=== PATIENT | female | born 1975 | race Two or more races ===

== ENCOUNTER 2017-10-13 10:57 | Outpatient (CLI) | payer OTHER ==
[~2017-10-13 10:57] MED LIST: ALDOMET500 MG; CLONAZEPAM0.5 MG; KEPPRA750 MG; LOTREL 10-20 MG1 CAP; PRENATAL1 TAB; RESTORIL30 MG; TOPAMAX200 MG
== END 2017-10-13 11:02 | disposition home or self-care (01) ==
LOC: SONOGRAMA 10:57
DX: M05.79 Rheumatoid arthritis with rheumatoid factor of multiple sites without organ or systems involvement (principal)

== ENCOUNTER → 2019-03-15 | Outpatient (CLI) | payer OTHER | END | disposition home or self-care (01) | LOC: MAMO-SONO 09:45 → SONOGRAMA 10:24 | DX: N93.8 Other specified abnormal uterine and vaginal bleeding (principal) ==

== ENCOUNTER → 2019-08-02 | Outpatient (CLI) | payer OTHER | END | disposition home or self-care (01) | LOC: NUCLEAR 10:00 | DX: I87.2 Venous insufficiency (chronic) (peripheral) (principal) ==

== ENCOUNTER 2023-01-20 09:27 | Outpatient (CLI) | payer OTHER | END 2023-01-20 09:44 | disposition home or self-care (01) | LOC: MAMO-SONO 09:27 | PROVIDERS: ATTEND Internal Medicine | DX: Z12.31 Encounter for screening mammogram for malignant neoplasm of breast (principal); R10.84 Generalized abdominal pain; I11.9 Hypertensive heart disease without heart failure; E87.6 Hypokalemia; N39.8 Other specified disorders of urinary system; N63.0 Unspecified lump in unspecified breast ==

== ENCOUNTER 2023-11-02 13:14 | Outpatient (CLI) | payer OTHER | END 2023-11-02 13:20 | disposition home or self-care (01) | LOC: RAD 13:14 | DX: M50.30 Other cervical disc degeneration, unspecified cervical region (principal) ==

== ENCOUNTER 2023-11-05 09:38 | Outpatient (CLI) | payer OTHER | END 2023-11-05 09:41 | disposition home or self-care (01) | LOC: TOM 09:38 | PROVIDERS: ATTEND Internal Medicine | DX: E87.5 Hyperkalemia (principal); E27.9 Disorder of adrenal gland, unspecified; R10.10 Upper abdominal pain, unspecified ==

== ENCOUNTER 2024-10-16 09:37 | Outpatient (CLI) | payer OTHER | END 2024-10-16 09:42 | disposition home or self-care (01) | LOC: MAMO-SONO 09:37 | PROVIDERS: ATTEND Internal Medicine | DX: N64.9 Disorder of breast, unspecified (principal); Z12.31 Encounter for screening mammogram for malignant neoplasm of breast ==

== ENCOUNTER 2024-12-29 09:42 | Outpatient (CLI) | payer OTHER | END 2024-12-29 09:49 | disposition home or self-care (01) | LOC: TOM 09:42 | PROVIDERS: ATTEND Internal Medicine | DX: R31.9 Hematuria, unspecified (principal) ==

== ENCOUNTER 2025-01-11 11:25 | Outpatient (CLI) | payer OTHER | END 2025-01-11 11:26 | disposition home or self-care (01) | LOC: NUCLEAR 11:25 | PROVIDERS: ATTEND Internal Medicine | DX: R60.0 Localized edema (principal) ==

== ENCOUNTER 2025-01-11 12:31 | Outpatient (CLI) | payer OTHER | END 2025-01-11 12:48 | disposition home or self-care (01) | LOC: RAD 12:31 | PROVIDERS: ATTEND Internal Medicine | DX: M54.2 Cervicalgia (principal); M25.561 Pain in right knee; M25.562 Pain in left knee; M25.521 Pain in right elbow; M25.522 Pain in left elbow; M79.641 Pain in right hand; M79.642 Pain in left hand; M25.571 Pain in right ankle and joints of right foot; M25.572 Pain in left ankle and joints of left foot; M79.671 Pain in right foot; M79.672 Pain in left foot ==

== ENCOUNTER 2025-01-16 11:05 | Inpatient (IN) | payer OTHER ==
[~2025-01-16] VITALS: Ht 157.5 cm; Wt 45.4 kg
[2025-01-16] MEDS ORDERED: BENAZEPRIL HCL20 MG PO (11:44)
[2025-01-16] MEDS ORDERED: POTASSIUM CITR15 MEQ PO (11:44)
[2025-01-16] MEDS ORDERED: CARDURA8 MG PO (11:45)
[2025-01-16] MEDS ORDERED: METOPROLOL SUCC50 MG PO (11:45)
[2025-01-16] MEDS ORDERED: COLCHICINE0.6 MG PO (11:46)
[2025-01-16] MEDS ORDERED: FAMOTIDINE20 MG PO (11:46)
--- NOTE | 2025-01-16 12:00 | NUR ---
SE RECIBE FEMINA ALERTA Y ORIENTADA X3 CUAL REFEIRE PRESENTA EDEMA BILATERAL EN EXTREMIDADES INFERIORES CON [address]ION. DR.PEDRO LANGFORD REFIERE A PTE A ALTHEA DE EMERGENCIAS PARA EVALUACION. SE DEBRA S/V Y SE UBICA.
--- NOTE | 2025-01-16 13:00 | NUR ---
SE ORIENTA A PACIENTE SOBRE TRATAMIENTO MEDICO, REFIERE ENTENDER. SE COLECTAN MUESTRAS DE LABORATORIO Y SE CANALIZA A PACIENTE BAJO MEDIDAS ASEPTICAS.
[2025-01-16 13:32] LABS: MEAN CELL VOLUME 76.3 fL (80.00-100.00); MEAN CORPUSCULAR HGB CONC 32.8 g/dl (32.0-36.0); PLATELET COUNT 603 K/uL (150-450); RED BLOOD COUNT 3.06 M/uL (4.00-6.00); RED CELL DISTRIBUTION WIDTH 15.5 % (11.5-14.5)
[2025-01-16 13:40] LABS: HEMATOCRIT 23.4 % (36.0-45.00); HEMOGLOBIN 7.7 g/dL (12.0-15.00); MEAN CORPUSCULAR HEMOGLOBIN 25.1 pg (27.00-32.0)
[2025-01-16 13:52] LABS: ERYTHROCYTE SEDIMENTATION RATE > 130 mm/hr
[2025-01-16 14:04] LABS: ALBUMIN 2.2 gm/dL (3.4-5.0); BILIRUBIN TOTAL 0.24 mg/dL (0.3-1.2); BILIRUBIN,CONJUGATED 0.1 mg/dL (0.0-0.2); BILIRUBIN,UNCONJUGATED 0.14 mg/dL (0.0-0.6); CALCIUM 8.7 mg/dL (8.5-10.1); CREATININE SERUM 0.78 mg/dL (0.55-1.02); GFR 77.86; GLOBULINA 6.4 G/DL (2.4-3.5); POTASSIUM 3.21 mEq/L (3.5-5.1); TOTAL PROTEIN 8.6 gm/dL (6.4-8.2); URIC ACID 4.7 mg/dL (2.5-7.5)
[2025-01-16 14:21] LABS: C-REACTIVE PROTEIN 13.2 MG/DL (0.00-0.29)
[2025-01-16 14:23] LABS: PH,URINE 7.5 (5.0-8.0); URINE APPEARANCE Clear; URINE BILIRRUBIN Negative (NEGATIVE); URINE BLOOD Negative; URINE COLOR Yellow; URINE GLUCOSE Negative (NEGATIVE); URINE KETONE Negative (NEGATIVE); URINE LEUKOCYTE Negative; URINE NITRATE Negative; URINE PROTEIN Negative (NEGATIVE); URINE UROBILINOGEN 0.2 E.U./dl
[2025-01-16 14:27] LABS: URINE BACTERIA 206.6 uL (0.0-1933); URINE EPITHELIAL CELLS 17.2 uL (0.0-38.8); URINE WBC 5.5 uL (0.0-23.2)
[2025-01-16 14:51] LABS: COVID-19 AG NEGATIVE (NEGATIVE)
[2025-01-16 14:52] LABS: INFLUENZA A AG NEGATIVE (NEGATIVE)
[2025-01-16 14:57] LABS: URINE CAST 0.14 uL (0.0-1.40); URINE RBC 0.7 uL (0.0-20.8)
[2025-01-16] MEDS ORDERED: ORPHENADRINE CITRATE 30 MG/ML AMPUL ONE (15:06)
[2025-01-16] MEDS ORDERED: ORPHENADRINE CITRATE 30 MG/ML AMPUL IM ONE (15:15)
[2025-01-16 16:39] VITALS: BP 165/92
[2025-01-16] MEDS ORDERED: FUROsemide 20 MG/2 ML VIAL IV SCH (18:01)
[2025-01-16] MEDS ORDERED: ACETAMINOPHEN 325 MG TABLET PO PRN (18:15)
[2025-01-17 02:52] VITALS: BP 138/80; O2SAT 94
[2025-01-17 08:58] VITALS: BP 164/92; O2SAT 98
[2025-01-17] MEDS ORDERED: FAMOTIDINE/PF 20 MG/2 ML VIAL IV SCH (09:00)
[2025-01-17] MEDS ORDERED: CLONAZEPAM 1 MG TABLET PO SCH (09:00)
[2025-01-17] MEDS ORDERED: LISINOPRIL 20 MG TABLET PO SCH (09:00)
[2025-01-17] MEDS ORDERED: POTASSIUM CHLORIDE 10 MEQ CAPSULE PO SCH (09:00)
[2025-01-17 10:01] LABS: TSH 1.67 uIU/mL (0.358-3.74)
[2025-01-17] MEDS ORDERED: SPIRONOLACTONE 25 MG TABLET PO SCH (17:00)
[2025-01-17] MEDS ORDERED: METOPROLOL SUCCINATE 50 MG TAB.SR.24H PO SCH (17:00)
[2025-01-17] MEDS ORDERED: DOXAZOSIN MESYLATE 2 MG TABLET PO SCH (17:00)
[2025-01-17 18:41] VITALS: BP 181/100
[2025-01-18 02:26] VITALS: BP 161/90; O2SAT 93
[2025-01-18 06:23] LABS: HEMATOCRIT 30.3 % (36.0-45.00); HEMOGLOBIN 10.1 g/dL (12.0-15.00); MEAN CELL VOLUME 76.4 fL (80.00-100.00); MEAN CORPUSCULAR HEMOGLOBIN 25.6 pg (27.00-32.0); MEAN CORPUSCULAR HGB CONC 33.5 g/dl (32.0-36.0); PLATELET COUNT 587 K/uL (150-450); RED BLOOD COUNT 3.97 M/uL (4.00-6.00); RED CELL DISTRIBUTION WIDTH 16.5 % (11.5-14.5)
[2025-01-18 06:53] LABS: ALBUMIN 2.1 gm/dL (3.4-5.0); CALCIUM 9.1 mg/dL (8.5-10.1); CREATININE SERUM 0.72 mg/dL (0.55-1.02); GFR 85.4; PHOSPHOROUS 4.1 mg/dL (2.5-4.9)
[2025-01-18 07:13] VITALS: BP 171/96; O2SAT 95
[2025-01-18 08:07] LABS: POTASSIUM 2.96 mEq/L (3.5-5.1)
[2025-01-18] MEDS ORDERED: POTASSIUM CHLORIDE 20MEQ/100ML H2O PB IV NR (08:45)
[2025-01-18 10:52] LABS: ob NEGATIVE (NEGATIVE)
[2025-01-18 11:11] LABS: kappa lambda r 1.95 (0.26-1.65); kappa light 122.6 mg/L (3.3-19.4); lambda light 62.9 mg/L (5.7-26.3)
[2025-01-18] MEDS ORDERED: MAGNESIUM CHLORIDE 70 MG TABLET.DR PO SCH (12:28)
[2025-01-18] MEDS ORDERED: AMINO ACIDS 1 EACH TABLET PO SCH (13:00)
[2025-01-18] MEDS ORDERED: ENALAPRILAT DIHYDRATE 1.25 MG/ML VIAL IV PRN (16:15)
[2025-01-18 16:47] VITALS: BP 165/106; O2SAT 99
[2025-01-18] MEDS ORDERED: AMLODIPINE BESYLATE 2.5 MG TABLET PO SCH (17:00)
[2025-01-19 01:48] VITALS: BP 139/89; O2SAT 98
[2025-01-19 07:20] VITALS: BP 147/88; O2SAT 97
[2025-01-19] MEDS ORDERED: ORPHENADRINE CITRATE 30 MG/ML AMPUL IM NR (11:00)
[2025-01-19 13:06] LABS: a:g ratio 0.4 (0.7-1.7); alpha 1 g 0.5 g/dL (0.0-0.4); alpha 2 1.1 g/dL (0.4-1.0); beta g 1.4 g/dL (0.7-1.3); prot total 8.6 g/dL (6.0-8.5)
[2025-01-19 15:12] LABS: CALCIUM 9.1 mg/dL (8.5-10.1); CREATININE SERUM 0.85 mg/dL (0.55-1.02); GFR 70.51; POTASSIUM 3.8 mEq/L (3.5-5.1)
[2025-01-19 18:18] VITALS: BP 145/88
[2025-01-20 02:56] VITALS: BP 136/89; O2SAT 98
[2025-01-20 17:07] LABS: BETA-2-MICROGLOBULINA 2.4 mg/L (0.6-2.4)
[2025-01-20 18:42] VITALS: BP 156/89
[2025-01-20] MEDS ORDERED: METHYLPREDNISOLONE SOD SUCC 40 MG VIAL IV SCH (21:00)
[2025-01-21 02:01] VITALS: BP 143/86; O2SAT 98
[2025-01-21] MEDS ORDERED: LISINOPRIL 20 MG TABLET PO SCH (09:00)
[2025-01-21 09:04] VITALS: BP 158/90
[2025-01-21] MEDS ORDERED: LISINOPRIL 40 MG TABLET PO NR (11:00)
[2025-01-21 17:16] VITALS: BP 173/109
[2025-01-21 20:20] VITALS: BP 146/88
[2025-01-21 22:03] VITALS: BP 148/88
[2025-01-22 00:55] VITALS: BP 169/80; O2SAT 97
[2025-01-22] MEDS ORDERED: LISINOPRIL 40 MG TABLET PO SCH (09:00)
[2025-01-22 17:54] VITALS: BP 153/87
[2025-01-22] MEDS ORDERED: CLONAZEPAM 1 MG TABLET PO SCH (21:00)
[2025-01-23 01:23] VITALS: BP 155/91
[2025-01-23 01:46] LABS: HEMATOCRIT 32.8 % (36.0-45.00); MEAN CELL VOLUME 76.7 fL (80.00-100.00); MEAN CORPUSCULAR HGB CONC 32.7 g/dl (32.0-36.0); RED BLOOD COUNT 4.27 M/uL (4.00-6.00); RED CELL DISTRIBUTION WIDTH 16.8 % (11.5-14.5)
[2025-01-23 01:49] LABS: HEMOGLOBIN 10.7 g/dL (12.0-15.00); PLATELET COUNT 558 K/uL (150-450)
[2025-01-23 09:50] VITALS: BP 162/91; O2SAT 99
[2025-01-23] MEDS ORDERED: LORazepam 2 MG/ML VIAL IV PUSH STA (13:36)
[2025-01-23] MEDS ORDERED: KETOROLAC TROMETHAMINE 30 MG VIAL IV NR (14:00)
[2025-01-23] MEDS ORDERED: FAMOTIDINE/PF 20 MG/2 ML VIAL IV PUSH STA (14:22)
[2025-01-23] MEDS ORDERED: DIPHENHYDRAMINE HCL 50 MG/ML VIAL 1ML IV ONE (14:30)
[2025-01-23 16:40] VITALS: BP 149/90; O2SAT 97
[2025-01-23] MEDS ORDERED: INSULIN LISPRO 1,000 UNIT/10 ML UNITS SUBCUTANEO PRN (17:45)
[2025-01-23] MEDS ORDERED: DEXTROSE 50 % IN WATER 0.5 G/ML VIAL IV PRN (17:45)
[2025-01-23] MEDS ORDERED: KETOROLAC TROMETHAMINE 30 MG VIAL ONE (17:46)
[2025-01-23] MEDS ORDERED: FAMOTIDINE/PF 20 MG/2 ML VIAL IV PUSH SCH (21:00)
[2025-01-24 00:13] VITALS: BP 153/90
[2025-01-24 04:00] VITALS: BP 149/87
[2025-01-24 08:00] VITALS: BP 178/90; O2SAT 97
[2025-01-24 17:53] VITALS: BP 161/98; O2SAT 98
[2025-01-25 02:01] VITALS: BP 156/92; O2SAT 97
[2025-01-25 17:08] LABS: BB 0 % (0); MM 100 % (97-100); c mb 0 % (0-3); macro t 0 % (Not Observed); macro tyoe 2 0 % (Not Observed); total ck 64 U/L (32-182)
== END 2025-01-25 15:59 | disposition home or self-care (01) | DRG 812 ==
LOC: ER 11:06 → MEDJ 18:04
PROVIDERS: Emergency Medicine; Internal Medicine Hematology & Oncology; Specialist/Technologist, Other Nephrology; ADMIT Internal Medicine; ATTEND Internal Medicine
PROC: 30233N1 Transfusion of Nonautologous Red Blood Cells into Peripheral Vein, Percutaneous Approach (ICD-10-PCS; principal; 2025-01-17)
PROC: 07DR3ZZ Extraction of Iliac Bone Marrow, Percutaneous Approach (ICD-10-PCS; 2025-01-18)
PROC: B030ZZZ Magnetic Resonance Imaging (MRI) of Brain (ICD-10-PCS; 2025-01-21)
PROC: B246ZZZ Ultrasonography of Right and Left Heart (ICD-10-PCS; 2025-01-22)
DX: D64.89 Other specified anemias (principal); E87.6 Hypokalemia; R59.0 Localized enlarged lymph nodes; R77.1 Abnormality of globulin; D75.839 Thrombocytosis, unspecified; M06.9 Rheumatoid arthritis, unspecified; E83.42 Hypomagnesemia; I10 Essential (primary) hypertension; E03.9 Hypothyroidism, unspecified
CPT/HCPCS: 70544

== ENCOUNTER 2025-07-31 08:39 | Outpatient (CLI) | payer OTHER ==
[~2025-07-31 08:39] MED LIST changes: +BENAZEPRIL HCL20 MG PO; +CARDURA8 MG PO; +COLCHICINE0.6 MG PO; +FAMOTIDINE20 MG PO; +METOPROLOL SUCC50 MG PO; +POTASSIUM CITR15 MEQ PO
== END 2025-07-31 08:42 | disposition home or self-care (01) ==
LOC: RAD 08:39
PROVIDERS: ATTEND Internal Medicine Hematology & Oncology
DX: S20.222A Contusion of left back wall of thorax, initial encounter (principal); M25.552 Pain in left hip; M79.662 Pain in left lower leg